=== PATIENT | female | born 1970 | race Caucasian/White ===

== ENCOUNTER 2021-02-14 07:02 | Outpatient (CLI) | payer BC | END 2021-02-14 07:03 | disposition home or self-care (01) | LOC: MADLAB 07:02 | PROVIDERS: ATTEND Nurse Practitioner Family | DX: M25.511 Pain in right shoulder (principal) ==

== ENCOUNTER 2021-07-06 11:01 | Emergency (ER) | payer BC | END 2021-07-06 12:27 | disposition home or self-care (01) | LOC: MADERS 11:01 | DX: M23.92 Unspecified internal derangement of left knee (principal); J45.909 Unspecified asthma, uncomplicated; Z79.899 Other long term (current) drug therapy ==